=== PATIENT | female | born 1985 | race Caucasian/White ===

== ENCOUNTER 2018-03-23 08:33 | Emergency (ER) | payer MEDICAID ==
[~2018-03-23] VITALS: Ht 152.4 cm; Wt 59.0 kg
[2018-03-23 08:39] VITALS: BP 135/94
[2018-03-23] MEDS ORDERED: TETanus/Pertussis (Acell)/Diphther VAC/PF (Tdap-Adult) 0.5ml syringe IM ONE (08:55)
[2018-03-23] MEDS ORDERED: LIDOcaine 1.5% w/epinephrine 1:200,000 5ml ampul IJ ONE (08:55)
== END 2018-03-23 09:45 | disposition home or self-care (01) ==
LOC: ER 08:34
DX: S01.112A Laceration without foreign body of left eyelid and periocular area, initial encounter (principal); W18.30XA Fall on same level, unspecified, initial encounter; Y93.89 Activity, other specified; Y92.89 Other specified places as the place of occurrence of the external cause; Y99.8 Other external cause status; Z88.2 Allergy status to sulfonamides; Z88.8 Allergy status to other drugs, medicaments and biological substances
CPT/HCPCS: 12013; 90471; 90715; 99284; A6449; J3490

== ENCOUNTER 2018-12-15 09:12 | Emergency (ER) | payer MEDICAID ==
[~2018-12-15] VITALS: Ht 165.1 cm; Wt 53.0 kg
[2018-12-15] MEDS ORDERED: TETanus/Pertussis (Acell)/Diphther VAC/PF (Tdap-Adult) 0.5ml syringe IM ONE (09:30)
[2018-12-15 09:40] VITALS: BP 117/91
== END 2018-12-15 10:13 | disposition home or self-care (01) ==
LOC: ER 09:13
DX: S00.31XA Abrasion of nose, initial encounter (principal); Z88.2 Allergy status to sulfonamides; Z88.8 Allergy status to other drugs, medicaments and biological substances; W01.0XXA Fall on same level from slipping, tripping and stumbling without subsequent striking against object, initial encounter; Y93.89 Activity, other specified; Y92.89 Other specified places as the place of occurrence of the external cause; Y99.8 Other external cause status
CPT/HCPCS: 90471; 90715; 99284

== ENCOUNTER 2021-06-21 09:00 | Inpatient (IN) | payer MEDICAID ==
[~2021-06-21] VITALS: Ht 165.1 cm; Wt 53.0 kg
[2021-06-21] VITALS (8 sets, daily range): BP systolic 102–121; BP diastolic 62–77
[2021-06-21] MEDS ORDERED: phenobarbital inj 130 MG in normal saline 100ml IV soln 99 ML IV ONE (09:20)
[2021-06-21 09:32] LABS: BASOPHILS % (AUTO) 0.3 % (0-1); EOSINOPHILS % (AUTO) 0 % (0-6); HEMATOCRIT 36.5 % (35.0-45.0); HEMOGLOBIN 11.9 g/dl (12.0-16.0); LYMPHOCYTES # (AUTO) 0.5 X10'3 (1.1-4.8); LYMPHOCYTES % (AUTO) 4.5 % (21-51); MEAN CORPUSCULAR HEMOGLOBIN 28.5 PG (27.0-31.0); MEAN CORPUSCULAR HGB CONC 32.7 g/dL (33.0-36.5); MEAN CORPUSCULAR VOLUME 87.4 FL (78-98); MEAN PLATELET VOLUME 8.3 FL (7.4-10.4); MONOCYTES # (AUTO) 0.4 X10'3 (0-0.9); MONOCYTES % (AUTO) 3.9 % (2-12); NEUTROPHILS # (AUTO) 9.5 X10'3 (1.8-7.7); NEUTROPHILS % (AUTO) 91.3 % (42-75); PLATELET COUNT 330 X10'3 (140-440); RED BLOOD COUNT 4.18 X10'6 (4.20-5.60); RED CELL DISTRIBUTION WIDTH 16.8 % (11.5-14.5); WHITE BLOOD COUNT 10.4 X10'3 (4.5-11.0)
[2021-06-21 09:40] LABS: PARTIAL THROMBOPLASTIN TIME 25 SECONDS (22-32)
[2021-06-21 09:41] LABS: ALANINE AMINOTRANSFERASE 18 U/L (12-78); ALBUMIN 4.3 G/DL (3.4-5.0); ALBUMIN/GLOBULIN RATIO 1.1 (1.1-1.5); ALKALINE PHOSPHATASE 61 IU/L (46-116); ANION GAP 14 (8-16); ASPARTATE AMINO TRANSFERASE 19 U/L (10-37); BILIRUBIN,TOTAL 0.4 MG/DL (0.1-1.0); BLOOD UREA NITROGEN 9 MG/DL (7-18); BUN/CREATININE RATIO 8.8 (6.6-38.0); CHLORIDE 109 MMOL/L (99-107); CREATININE 1.02 MG/DL (0.40-0.90); GLUCOSE 69 MG/DL (70-104); POTASSIUM 3.9 MMOL/L (3.5-5.1); SODIUM 145 MMOL/L (135-145); TOTAL CARBON DIOXIDE 22.3 MMOL/L (24-32); TOTAL PROTEIN 8.3 G/DL (6.4-8.2); eGFR 62 ML/MIN
--- NOTE | 2021-06-21 10:34 | NUR ---
ASSUMED CARE OF PT FROM DEMETRI BEASLEY
[2021-06-21] MEDS ORDERED: MIDAZolam 5mg/ml 2ml vial IV ONE (10:40)
[2021-06-21] MEDS ORDERED: morphine 2 MG/ML inj. syringe IV ONE (11:25)
--- NOTE | 2021-06-21 11:30 | NUR ---
UNABLE TO DO COMPLETE NIH ASSESSMENT, PT IS DEVELOPMENTALLY DELAYED, HAS HAD SEVERAL STROKES TODAY AND IS POSTICTAL
--- NOTE | 2021-06-21 11:32 | NUR ---
first contact with pt, pt is agitated, was unable to do CT earlier due to agitation, medicated per order, pt to CT now, caregiver is at bedside, pt not talking, following simple commands, eyes open spontaneously, resp even and unlabored, skin p/w/d, per caregiver pt has had increase in seizures lately,
[2021-06-21] MEDS ORDERED: SENN8.6T19 PO (12:02)
[2021-06-21] MEDS ORDERED: SERT-433 PO (12:02)
[2021-06-21] MEDS ORDERED: GABA-534 PO (12:02)
[2021-06-21] MEDS ORDERED: OMEP-50 PO (12:02)
[2021-06-21] MEDS ORDERED: LORA-269 PO (12:02)
[2021-06-21] MEDS ORDERED: LACO150T2 PO (12:02)
[2021-06-21] MEDS ORDERED: BUSP10TA4 PO (12:02)
[2021-06-21] MEDS ORDERED: LIDOcaine 2% 10ml TOPICAL JELLY (Urojet) TP ONE (12:05)
[2021-06-21] MEDS ORDERED: LEVE500T99 PO ×2 (12:08)
[2021-06-21] MEDS ORDERED: LAMO200T10 PO (12:08)
--- NOTE | 2021-06-21 12:14 | NUR ---
in and out cath done, pt is wearing depends, wet with urine, changed pt, able to get small amount of urine out, sample sent to lab
--- NOTE | 2021-06-21 12:15 | NUR ---
PT IS RESTING QUIETLY, ABLE TO MOVE ALL EXTREMITIES, CAREGIVER REMAINS AT BEDSIDE
[2021-06-21 12:27] LABS: URINE HCG NEGATIVE (NEG)
[2021-06-21 12:29] LABS: CLARITY,URINE CLOUDY (Clear); COLOR,URINE YELLOW (Yellow); GLUCOSE, URINE NEGATIVE (Neg); KETONES,URINE 40 mg/dl (Neg); PROTEIN,URINE TRACE mg/dl (Neg); UA COLLECTION TYPE STRAIGHT CATH
[2021-06-21 12:30] LABS: LEUKOCYTE ESTERASE ,URINE NEGATIVE (Neg); NITRITES, URINE NEGATIVE (Neg); OCCULT BLOOD,URINE NEGATIVE (Neg); UROBILINOGEN,URINE 0.2 E.U/dL (0.2-1.0)
[2021-06-21 12:38] LABS: URINE AMPHETAMINE SCREEN NEGATIVE (Neg); URINE BARBITUATE SCREEN NEGATIVE (Neg); URINE BENZODIAZEPINES SCREEN POSITIVE (Neg); URINE CANNABINOID SCREEN NEGATIVE (Neg); URINE COCAINE SCREEN NEGATIVE (Neg); URINE METHADONE SCREEN NEGATIVE (Neg); URINE OPIATE SCREEN POSITIVE (Neg); URINE PHENCYCLIDINE SCREEN NEGATIVE (Neg)
[2021-06-21] MEDS ORDERED: acetaminophen 325mg tablet PO PRN ×2 (12:50)
[2021-06-21] MEDS ORDERED: morphine 4 MG/ML inj SYRINge IV PRN (12:50)
[2021-06-21] MEDS ORDERED: magnesium hydroxide 30ml (MOM) UD suspension PO PRN (12:50)
[2021-06-21] MEDS ORDERED: potassium Cl 20 mEq SR tablet PO PRN (12:50)
[2021-06-21] MEDS ORDERED: HYDROcodone/acetaminophen 5mg/325mg tablet PO PRN (12:50)
[2021-06-21] MEDS: bisacodyl 10mg suppository rectal RC SCH (12:50)
[2021-06-21 12:51] LABS: AMORPHOUS URATES 3+; SQUAMOUS EPITHELIAL CELL,UR MANY /LPF (FEW)
[2021-06-21 12:52] LABS: BACTERIA,URINE FEW /HPF (Neg); RBC,URINE NONE SEEN /HPF (0-2); WBC,URINE 0-4 /HPF (0-4)
[2021-06-21] MEDS ORDERED: ringers solution, lacted 1,000 ML IV ONE (12:55)
[2021-06-21] MEDS ORDERED: levetiracetam inj 1,000 MG in normal saline 100ml IV soln 90 ML IV ONE (13:15)
--- NOTE | 2021-06-21 14:34 | NUR ---
pt is resting quietly on gursteve, caregiver at bedside, she said pt had another seizure, pt is moving all extremities now, resp even and unlabored, almost back to baseline per caregiver, pt does talk, amb with gait belt, able to do some ADLs normally
--- NOTE | 2021-06-21 15:17 | NUR ---
REPORT TO DEBRA BEASLEY
--- NOTE | 2021-06-21 16:15 | NUR ---
Received pt from ED
--- NOTE | 2021-06-21 18:00 | NUR ---
Patient in room ICU 2040. I have received report from Eliseo BEASLEY and had the opportunity to ask questions and assume patient care.
--- NOTE | 2021-06-21 18:58 | NUR ---
patient has seizure length 20 seconds est. patient began screaming and then raised both hands to the cieling and began to shake and eyes were rolling. seizure ended at 1858, seizure precautions in place, patient safe
[2021-06-21] MEDS ORDERED: LORazepam 2 mg/ml vial IV PRN (19:20)
[2021-06-21] MEDS: normal saline 1000ml 1,000 ML IV SCH ×2 (19:25→22:50)
[2021-06-21] MEDS ORDERED: levetiracetam inj 1,000 MG in normal saline 100ml IV soln 90 ML IV SCH ×6 (20:00)
[2021-06-21] MEDS ORDERED: phenobarbital inj 130 MG in normal saline 100ml IV soln 99 ML IV SCH (20:00)
[2021-06-21] MEDS: enoxaparin 40mg/0.4ml syringe SQ SCH (20:27)
--- NOTE | 2021-06-21 20:30 | NUR ---
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 no answer.
[2021-06-21] MEDS ORDERED: levetiracetam inj 2,000 MG in normal saline 100ml IV soln 80 ML IV STA (21:25)
[2021-06-21] MEDS ORDERED: lamoTRIgine 100mg tablet PO SCH (21:30)
[2021-06-21] MEDS ORDERED: gabapentin 400mg capsule PO SCH (21:45)
[2021-06-22] VITALS (23 sets, daily range): BP systolic 88–114; BP diastolic 56–93
[2021-06-22] MEDS ORDERED: LORazepam 2 mg/ml vial IV PRN (04:30)
[2021-06-22] MEDS ORDERED: LORazepam 2 mg/ml vial IV ONE (04:36)
[2021-06-22 06:48] LABS: BASOPHILS % (AUTO) 0.4 % (0-1); EOSINOPHILS % (AUTO) 0.1 % (0-6); HEMATOCRIT 33.5 % (35.0-45.0); HEMOGLOBIN 10.8 g/dl (12.0-16.0); LYMPHOCYTES # (AUTO) 1.7 X10'3 (1.1-4.8); LYMPHOCYTES % (AUTO) 28.6 % (21-51); MEAN CORPUSCULAR HEMOGLOBIN 28.5 PG (27.0-31.0); MEAN CORPUSCULAR HGB CONC 32.2 g/dL (33.0-36.5); MEAN CORPUSCULAR VOLUME 88.7 FL (78-98); MEAN PLATELET VOLUME 8.9 FL (7.4-10.4); MONOCYTES # (AUTO) 0.5 X10'3 (0-0.9); NEUTROPHILS # (AUTO) 3.7 X10'3 (1.8-7.7); NEUTROPHILS % (AUTO) 62.9 % (42-75); PLATELET COUNT 247 X10'3 (140-440); RED BLOOD COUNT 3.78 X10'6 (4.20-5.60); RED CELL DISTRIBUTION WIDTH 16.9 % (11.5-14.5)
[2021-06-22 07:25] LABS: ALANINE AMINOTRANSFERASE 15 U/L (12-78); ALBUMIN 3.6 G/DL (3.4-5.0); ALKALINE PHOSPHATASE 51 IU/L (46-116); ANION GAP 14 (8-16); ASPARTATE AMINO TRANSFERASE 18 U/L (10-37); BILIRUBIN,TOTAL 0.4 MG/DL (0.1-1.0); BLOOD UREA NITROGEN 11 MG/DL (7-18); BUN/CREATININE RATIO 17.5 (6.6-38.0); CALCIUM 8.5 MG/DL (8.5-10.1); CHLORIDE 115 MMOL/L (99-107); CREATININE 0.63 MG/DL (0.40-0.90); GLUCOSE 71 MG/DL (70-104); MAGNESIUM 2.3 MG/DL (1.5-2.4); PHOSPHORUS 3.7 MG/DL (2.3-4.5); POTASSIUM 3.8 MMOL/L (3.5-5.1); SODIUM 148 MMOL/L (135-145); TOTAL PROTEIN 7.1 G/DL (6.4-8.2); eGFR > 90 ML/MIN
[2021-06-22] MEDS ORDERED: levetiracetam inj 1,500 MG in normal saline 100ml IV soln 85 ML IV SCH (08:00)
[2021-06-22] MEDS ORDERED: dextrose 50%-water 50ml dispensing syringe IV ONE (09:11)
[2021-06-22] MEDS: pantoprazole 40 MG vial IV SCH (10:41)
[2021-06-22] MEDS: normal saline 1000ml 1,000 ML IV SCH (10:41)
[2021-06-22] MEDS ORDERED: normal saline 250ml IV soln 250 ML IV ONE (11:20)
[2021-06-22] MEDS: dextrose 5%-water 1,000 ML IV SCH (11:52)
[2021-06-22] MEDS ORDERED: dextrose ORAL solution 15 GM/59 ML bottle PO PRN (14:40)
[2021-06-22] MEDS ORDERED: glucagon, human recombinant 1mg kit SUBCUT PRN (14:40)
[2021-06-22] MEDS ORDERED: dextrose 50%-water 50ml dispensing syringe IV PRN ×2 (14:40)
[2021-06-22] MEDS: busPIRone 5mg tablet PO SCH ×2 (15:01→20:51)
[2021-06-22] MEDS: lamoTRIgine 100mg tablet PO SCH ×2 (15:01→20:51)
[2021-06-22] MEDS: LACOSAMIDE 50 MG TABLET PO SCH ×2 (15:41→20:45)
[2021-06-22] MEDS: enoxaparin 40mg/0.4ml syringe SQ SCH (20:45)
[2021-06-22] MEDS: gabapentin 400mg capsule PO SCH (20:45)
[2021-06-22] MEDS: sennosides 8.6mg tablet PO SCH (20:50)
[2021-06-22] MEDS: levetiracetamNACL 1500mg/100mL 100 ML IV SCH (20:50)
[2021-06-23] VITALS (17 sets, daily range): BP systolic 91–114; BP diastolic 56–80
--- NOTE | 2021-06-23 01:28 | NUR ---
PATIENT REMOVES NG TUBE, MD HARTMANN NOTIFIED, RELAYED THAT PATIENT BLOOD SUGAR WAS LOW AND GIVEN APPLE SAUCE AND APPLE JUICE AND TOLERATES WELL. SUGAR WENT FROM 65 TO 81, PT STABLE AND ABSENT OF SEIZURES SO FAR THIS SHIFT. STATES THAT WE WULL CONT. TO MONITOR AND HOLD OFF ON NG TUBEUNTIL FURTHER NOTICE. PATENT HAS DEXTROSE AT 20ML/HR.
--- NOTE | 2021-06-23 05:35 | NUR ---
no out output or bm, for patient entire shift. pt is npo recieving d5 at 20 and is npo but was given apple juice and apple sauce for low blood sugar. was also given stool softener. patient was absent of seiure episode entire shift and was not given any ativan. patient was lethargic entire shift.
[2021-06-23] MEDS: LACOSAMIDE 50 MG TABLET PO SCH ×2 (08:14→20:00)
[2021-06-23] MEDS: levetiracetamNACL 1500mg/100mL 100 ML IV SCH ×2 (08:14→20:33)
[2021-06-23] MEDS: busPIRone 5mg tablet PO SCH ×3 (08:15→23:31)
[2021-06-23] MEDS: sertraline 50mg tablet PO SCH (08:15)
[2021-06-23] MEDS: lamoTRIgine 100mg tablet PO SCH ×3 (08:15→23:32)
[2021-06-23] MEDS: gabapentin 400mg capsule PO SCH ×2 (08:15→20:02)
[2021-06-23] MEDS: sennosides 8.6mg tablet PO SCH ×2 (08:16→20:01)
[2021-06-23] MEDS: pantoprazole 40 MG vial IV SCH (08:16)
[2021-06-23 12:05] LABS: BASOPHILS % (AUTO) 0.3 % (0-1); EOSINOPHILS % (AUTO) 0.3 % (0-6); HEMATOCRIT 31.7 % (35.0-45.0); HEMOGLOBIN 10.4 g/dl (12.0-16.0); LYMPHOCYTES % (AUTO) 22.7 % (21-51); MEAN CORPUSCULAR HEMOGLOBIN 28.5 PG (27.0-31.0); MEAN CORPUSCULAR HGB CONC 32.7 g/dL (33.0-36.5); MEAN CORPUSCULAR VOLUME 87.1 FL (78-98); MONOCYTES # (AUTO) 0.3 X10'3 (0-0.9); MONOCYTES % (AUTO) 7.5 % (2-12); NEUTROPHILS # (AUTO) 3.1 X10'3 (1.8-7.7); NEUTROPHILS % (AUTO) 69.2 % (42-75); PLATELET COUNT 227 X10'3 (140-440); RED BLOOD COUNT 3.64 X10'6 (4.20-5.60); RED CELL DISTRIBUTION WIDTH 16.6 % (11.5-14.5); WHITE BLOOD COUNT 4.5 X10'3 (4.5-11.0)
[2021-06-23 12:20] LABS: ALANINE AMINOTRANSFERASE 18 U/L (12-78); ALBUMIN 3.2 G/DL (3.4-5.0); ALBUMIN/GLOBULIN RATIO 0.9 (1.1-1.5); ALKALINE PHOSPHATASE 54 IU/L (46-116); ANION GAP 14 (8-16); ASPARTATE AMINO TRANSFERASE 18 U/L (10-37); BILIRUBIN,TOTAL 0.4 MG/DL (0.1-1.0); BLOOD UREA NITROGEN 4 MG/DL (7-18); CALCIUM 7.8 MG/DL (8.5-10.1); CHLORIDE 106 MMOL/L (99-107); CREATININE 0.67 MG/DL (0.40-0.90); GLUCOSE 79 MG/DL (70-104); MAGNESIUM 1.8 MG/DL (1.5-2.4); PHOSPHORUS 4.2 MG/DL (2.3-4.5); POTASSIUM 3.3 MMOL/L (3.5-5.1); SODIUM 142 MMOL/L (135-145); TOTAL CARBON DIOXIDE 22.4 MMOL/L (24-32); TOTAL PROTEIN 6.8 G/DL (6.4-8.2); eGFR > 90 ML/MIN
--- NOTE | 2021-06-23 16:51 | NUR ---
Patient currently resting on bed comfortably, patient urinated large amount of urine on her gown and diaper. Pericare done and changed gowns and underpad. Sitter present at bedside. Upper side rails are padded.
--- NOTE | 2021-06-23 18:46 | NUR ---
Problems reprioritized. Patient report given, questions answered & plan of care reviewed with Nic BEASLEY.
[2021-06-23] MEDS: enoxaparin 40mg/0.4ml syringe SQ SCH (20:03)
[2021-06-24 02:00] VITALS: BP 103/63
[2021-06-24 06:00] VITALS: BP 105/68
[2021-06-24 06:49] LABS: BASOPHILS % (AUTO) 0.4 % (0-1); EOSINOPHILS % (AUTO) 1.2 % (0-6); HEMATOCRIT 30.5 % (35.0-45.0); HEMOGLOBIN 10.2 g/dl (12.0-16.0); LYMPHOCYTES % (AUTO) 28.7 % (21-51); MEAN CORPUSCULAR HEMOGLOBIN 28.9 PG (27.0-31.0); MEAN CORPUSCULAR HGB CONC 33.3 g/dL (33.0-36.5); MEAN CORPUSCULAR VOLUME 86.7 FL (78-98); MEAN PLATELET VOLUME 8.2 FL (7.4-10.4); MONOCYTES # (AUTO) 0.3 X10'3 (0-0.9); MONOCYTES % (AUTO) 8.2 % (2-12); NEUTROPHILS # (AUTO) 2.2 X10'3 (1.8-7.7); NEUTROPHILS % (AUTO) 61.5 % (42-75); PLATELET COUNT 240 X10'3 (140-440); RED BLOOD COUNT 3.51 X10'6 (4.20-5.60); RED CELL DISTRIBUTION WIDTH 16.6 % (11.5-14.5); WHITE BLOOD COUNT 3.6 X10'3 (4.5-11.0)
[2021-06-24 07:09] LABS: ALANINE AMINOTRANSFERASE 17 U/L (12-78); ALBUMIN 3.2 G/DL (3.4-5.0); ALBUMIN/GLOBULIN RATIO 0.9 (1.1-1.5); ALKALINE PHOSPHATASE 49 IU/L (46-116); ANION GAP 10 (8-16); ASPARTATE AMINO TRANSFERASE 17 U/L (10-37); BILIRUBIN,TOTAL 0.4 MG/DL (0.1-1.0); BLOOD UREA NITROGEN 7 MG/DL (7-18); BUN/CREATININE RATIO 10.1 (6.6-38.0); CALCIUM 8.3 MG/DL (8.5-10.1); CHLORIDE 108 MMOL/L (99-107); CREATININE 0.69 MG/DL (0.40-0.90); GLUCOSE 85 MG/DL (70-104); MAGNESIUM 1.8 MG/DL (1.5-2.4); PHOSPHORUS 3.8 MG/DL (2.3-4.5); POTASSIUM 3.2 MMOL/L (3.5-5.1); SODIUM 143 MMOL/L (135-145); TOTAL CARBON DIOXIDE 24.9 MMOL/L (24-32); TOTAL PROTEIN 6.7 G/DL (6.4-8.2); eGFR > 90 ML/MIN
[2021-06-24] MEDS: lamoTRIgine 100mg tablet PO SCH ×3 (08:00→20:50)
[2021-06-24] MEDS: LACOSAMIDE 50 MG TABLET PO SCH ×2 (08:22→20:47)
[2021-06-24] MEDS: sennosides 8.6mg tablet PO SCH ×2 (08:22→20:47)
[2021-06-24] MEDS: sertraline 50mg tablet PO SCH (08:22)
[2021-06-24] MEDS: pantoprazole 40 MG vial IV SCH (08:22)
[2021-06-24] MEDS: busPIRone 5mg tablet PO SCH ×3 (08:22→20:49)
[2021-06-24] MEDS: levetiracetamNACL 1500mg/100mL 100 ML IV SCH ×2 (08:22→20:59)
[2021-06-24] MEDS: gabapentin 400mg capsule PO SCH ×2 (08:22→20:47)
[2021-06-24 11:00] VITALS: BP 94/60
[2021-06-24] MEDS: dextrose 5%-water 1,000 ML IV SCH (11:20)
[2021-06-24] MEDS: potassium Cl 20 mEq SR tablet PO PRN ×2 (12:32→16:41)
[2021-06-24] MEDS: bisacodyl 10mg suppository rectal RC SCH (12:33)
[2021-06-24 15:00] VITALS: BP 103/70
[2021-06-24 18:00] VITALS: BP 105/72
--- NOTE | 2021-06-24 18:15 | NUR ---
I have received report from RAMOS Thakkar and had the opportunity to ask questions and assume patient care. Addendum: 06/25/21 at 0635 by Darrin Cope RN Received report RAMOS Hernandez
--- NOTE | 2021-06-24 18:30 | NUR ---
RE: U 15A Barb. Pt has D5W q48hrs ordered. Do you want us to continue this order? She is eating, drinking, and bs check are WNL. Please advise.
--- NOTE | 2021-06-24 18:31 | NUR ---
PAGER ID: [phone] MESSAGE: RE: KITTY Zuleika Barb. Pt has D5W q48hrs ordered. Do you want us to continue this order? She is eating, drinking, and bs check are WNL. Please advise.
--- NOTE | 2021-06-24 18:35 | NUR ---
Patient in room U 3015. I have received report from RAMOS Ramirez and had the opportunity to ask questions and assume patient care. Addendum: 06/25/21 at 0257 by Darrin Cope RN received report on this pt from RAMOS Thakkar see earlier note
--- NOTE | 2021-06-24 18:50 | NUR ---
Report given to shift manager nurse.
--- NOTE | 2021-06-24 18:55 | NUR ---
Called Dr Ventura @[phone]. States it is ok to d/c the Q48 D5W.
[2021-06-24] MEDS: enoxaparin 40mg/0.4ml syringe SQ SCH (20:49)
[2021-06-24 21:46] VITALS: BP 103/71
[2021-06-24] MEDS: ondansetron/PF 4mg/2ml inj IV PRN (21:47)
[2021-06-25] MEDS: ondansetron/PF 4mg/2ml inj IV PRN (03:49)
[2021-06-25 06:00] VITALS: BP 174/67
--- NOTE | 2021-06-25 06:36 | NUR ---
Problems reprioritized. Patient report given, questions answered & plan of care reviewed with RAMOS Hernandez.
[2021-06-25 07:21] LABS: BASOPHILS % (AUTO) 0.3 % (0-1); EOSINOPHILS # (AUTO) 0.1 X10'3 (0-0.9); EOSINOPHILS % (AUTO) 2.2 % (0-6); HEMATOCRIT 31.6 % (35.0-45.0); HEMOGLOBIN 10.6 g/dl (12.0-16.0); LYMPHOCYTES % (AUTO) 27.8 % (21-51); MEAN CORPUSCULAR HEMOGLOBIN 29.1 PG (27.0-31.0); MEAN CORPUSCULAR HGB CONC 33.5 g/dL (33.0-36.5); MEAN CORPUSCULAR VOLUME 86.9 FL (78-98); MEAN PLATELET VOLUME 8.6 FL (7.4-10.4); MONOCYTES # (AUTO) 0.3 X10'3 (0-0.9); MONOCYTES % (AUTO) 7.8 % (2-12); NEUTROPHILS # (AUTO) 2.2 X10'3 (1.8-7.7); NEUTROPHILS % (AUTO) 61.9 % (42-75); PLATELET COUNT 253 X10'3 (140-440); RED BLOOD COUNT 3.64 X10'6 (4.20-5.60); RED CELL DISTRIBUTION WIDTH 17.2 % (11.5-14.5); WHITE BLOOD COUNT 3.6 X10'3 (4.5-11.0)
[2021-06-25 07:41] LABS: ALANINE AMINOTRANSFERASE 17 U/L (12-78); ALBUMIN 3.4 G/DL (3.4-5.0); ALBUMIN/GLOBULIN RATIO 0.9 (1.1-1.5); ALKALINE PHOSPHATASE 50 IU/L (46-116); ANION GAP 8 (8-16); ASPARTATE AMINO TRANSFERASE 13 U/L (10-37); BILIRUBIN,TOTAL 0.3 MG/DL (0.1-1.0); BLOOD UREA NITROGEN 5 MG/DL (7-18); BUN/CREATININE RATIO 7.5 (6.6-38.0); CALCIUM 8.8 MG/DL (8.5-10.1); CHLORIDE 108 MMOL/L (99-107); CREATININE 0.67 MG/DL (0.40-0.90); GLUCOSE 77 MG/DL (70-104); MAGNESIUM 2.1 MG/DL (1.5-2.4); PHOSPHORUS 3.3 MG/DL (2.3-4.5); POTASSIUM 3.9 MMOL/L (3.5-5.1); SODIUM 143 MMOL/L (135-145); TOTAL CARBON DIOXIDE 27.1 MMOL/L (24-32); eGFR > 90 ML/MIN
[2021-06-25] MEDS: busPIRone 5mg tablet PO SCH ×3 (08:21→20:01)
[2021-06-25] MEDS: sertraline 50mg tablet PO SCH (08:21)
[2021-06-25] MEDS: lamoTRIgine 100mg tablet PO SCH ×3 (08:21→20:01)
[2021-06-25] MEDS: levetiracetamNACL 1500mg/100mL 100 ML IV SCH ×2 (08:21→20:10)
[2021-06-25] MEDS: sennosides 8.6mg tablet PO SCH ×2 (08:21→20:01)
[2021-06-25] MEDS: LACOSAMIDE 50 MG TABLET PO SCH ×2 (08:21→20:01)
[2021-06-25] MEDS: pantoprazole 40mg Tablet.DR PO SCH (08:21)
[2021-06-25] MEDS: gabapentin 400mg capsule PO SCH ×2 (08:21→20:01)
[2021-06-25 11:00] VITALS: BP 134/61
--- NOTE | 2021-06-25 13:14 | NUR ---
Initial: Pt admitted w/ multiple seizures per EMR. Pt has been able to eat well throughout LOS, 100% of all meals on SB6/Regular diet except for dinner 06/24 which she refused. Pt noted w/ areas of redness on back and sacrum though no open wounds documented. LBM 06/24. No nutrition intervention implemented at this time, will continue to monitor. Recs: 1. Continue SB6/Regular diet per ST recs 2. Bowel care per rx 3. Weekly wts Addendum: 06/25/21 at [address] Amended: Links added.
[2021-06-25 15:00] VITALS: BP 91/63
--- NOTE | 2021-06-25 18:00 | NUR ---
I have received report from David BEASLEY and had the opportunity to ask questions and assume patient care.
[2021-06-25 20:00] VITALS: BP 94/68
[2021-06-25] MEDS: enoxaparin 40mg/0.4ml syringe SQ SCH (20:02)
--- NOTE | 2021-06-25 22:30 | NUR ---
Problems reprioritized. Patient report given, questions answered & plan of care reviewed with Flex BEASLEY.
--- NOTE | 2021-06-26 03:12 | NUR ---
Patient in room [facility] 340. I have received report from Shasta BEASLEY and had the opportunity to ask questions and assume patient care.
--- NOTE | 2021-06-26 06:57 | NUR ---
Patient in room [facility] 340. I have received report from RAMOS HEART and had the opportunity to ask questions and assume patient care.
[2021-06-26 07:00] VITALS: BP_SYST 101; BP_SYST 165; BP_DIAS 68; BP_DIAS 87
--- NOTE | 2021-06-26 07:36 | NUR ---
Problems reprioritized. Patient report given, questions answered & plan of care reviewed with Denise BEASLEY.
[2021-06-26] MEDS: sertraline 50mg tablet PO SCH (09:25)
[2021-06-26] MEDS: pantoprazole 40mg Tablet.DR PO SCH (09:25)
[2021-06-26] MEDS: busPIRone 5mg tablet PO SCH ×2 (09:25→13:50)
[2021-06-26] MEDS: lamoTRIgine 100mg tablet PO SCH ×2 (09:26→13:50)
[2021-06-26] MEDS: sennosides 8.6mg tablet PO SCH (09:26)
[2021-06-26] MEDS: gabapentin 400mg capsule PO SCH (09:26)
[2021-06-26] MEDS: levetiracetamNACL 1500mg/100mL 100 ML IV SCH (10:24)
[2021-06-26 11:00] VITALS: BP_SYST 107; BP_SYST 155; BP_DIAS 80; BP_DIAS 86
[2021-06-26] MEDS: LACOSAMIDE 50 MG TABLET PO SCH (11:01)
--- NOTE | 2021-06-26 11:57 | NUR ---
Spoke to Dr Moore from ICU regarding patient has not had any notes from a physician since 06/23. I advised Dr Moore that I have spoken with Belkis in the hospitalist office who does not show that this patient has been signed out to there service. The last note from Dr Sullivan stated that patient no longer needed ICU and would be transferred to Med/ Surg. Patient came to our floor last night from PCU. Dr Moore will contact Hospitalist service Dr Pinzon. No Hospitalist at this time will wait for DR Moore to sign out.
[2021-06-26] MEDS ORDERED: KEP500T PO (13:17)
--- NOTE | 2021-06-26 14:35 | NUR ---
Pt discharged to home with all belongings, in private vehicle. Discharge instructions and medications reviewed with Santi Chacko via T/C. New prescription sent to [facility] on [address] IV DC'd, cannula intact. Per Santi, pt has an appointment with her neurologist scheduled 07/02. Pt escorted to [facility] via wheelchair by [facility].
== END 2021-06-26 14:52 | disposition home or self-care (01) | DRG 53 ==
LOC: ER 09:00 → ICU 2S 12:53 → PCU 3S 06-23 18:46 → SUR 3N 06-25 22:00
PROVIDERS: ADMIT Surgery; ATTEND Surgery
PROC: 4A10X4Z Monitoring of Central Nervous Electrical Activity, External Approach (ICD-10-PCS; principal; 2021-06-21)
PROC: 4A10X4Z Monitoring of Central Nervous Electrical Activity, External Approach (ICD-10-PCS; 2021-06-22)
PROC: 4A10X4Z Monitoring of Central Nervous Electrical Activity, External Approach (ICD-10-PCS; 2021-06-23)
DX: G40.911 Epilepsy, unspecified, intractable, with status epilepticus (principal); G83.84 Todd's paralysis (postepileptic); E86.1 Hypovolemia; Z20.822 Contact with and (suspected) exposure to COVID-19; F32.9 Major depressive disorder, single episode, unspecified; Z88.2 Allergy status to sulfonamides; Z88.8 Allergy status to other drugs, medicaments and biological substances; Z79.899 Other long term (current) drug therapy
CPT/HCPCS: 36415; 70450; 71045; 74018; 76937; 80053; 80305; 81001; 81025; 82948; 83735; 84100; 85025; 85610; 85730; 86885; 86900; 86901; 87081; 87635; 92508; 92616; 93005; 95720; 99291; C9113; C9803; G0378; J1650; J1953; J2060; J2250; J2270; J2405; J2560; J7030; J7050; J7070

== ENCOUNTER 2022-01-02 12:51 | Emergency (ER) | payer MEDICAID ==
[~2022-01-02] VITALS: Ht 170.2 cm; Wt 52.3 kg
[~2022-01-02 12:51] MED LIST: BUSP10TA4 PO; GABA-534 PO; KEP500T PO; LACO150T2 PO; LAMO200T10 PO; SENN8.6T19 PO; SERT-433 PO
[2022-01-02 13:40] VITALS: BP 108/71
[2022-01-02] MEDS ORDERED: TETanus/Pertussis (Acell)/Diphther VAC/PF (Tdap-Adult) 0.5ml syringe IMVAC ONE (14:00)
[2022-01-02] MEDS ORDERED: LIDOcaine 1% W/epiNEPHrine 1:200,000 10ml vial IJ ONE (14:00)
[2022-01-02] MEDS ORDERED: LIDOCAINE 2% w/EPI 1:100:000 30mL injection MDV**cath lab 1 only SQ ONE (14:20)
== END 2022-01-02 15:10 | disposition home or self-care (01) ==
LOC: ER 12:52
DX: S01.01XA Laceration without foreign body of scalp, initial encounter (principal); Z88.2 Allergy status to sulfonamides; Z79.899 Other long term (current) drug therapy; W19.XXXA Unspecified fall, initial encounter; Y93.89 Activity, other specified; Y92.89 Other specified places as the place of occurrence of the external cause; Y99.8 Other external cause status
CPT/HCPCS: 12002; 90471; 90715; 99284

== ENCOUNTER 2022-10-12 09:22 | Outpatient (CLI) | payer MEDICAID ==
[2022-10-12 10:46] LABS: BASOPHILS % (AUTO) 0.3 % (0-1); EOSINOPHILS % (AUTO) 0 % (0-6); HEMATOCRIT 35.7 % (35.0-45.0); HEMOGLOBIN 11.6 g/dl (12.0-16.0); LYMPHOCYTES # (AUTO) 1.2 X10'3 (1.1-4.8); LYMPHOCYTES % (AUTO) 22.5 % (21-51); MEAN CORPUSCULAR HEMOGLOBIN 26.8 PG (27.0-31.0); MEAN CORPUSCULAR HGB CONC 32.6 g/dL (33.0-36.5); MEAN CORPUSCULAR VOLUME 82.4 FL (78-98); MEAN PLATELET VOLUME 8.6 FL (7.4-10.4); MONOCYTES # (AUTO) 0.3 X10'3 (0-0.9); MONOCYTES % (AUTO) 6.1 % (2-12); NEUTROPHILS # (AUTO) 3.8 X10'3 (1.8-7.7); NEUTROPHILS % (AUTO) 71.1 % (42-75); PLATELET COUNT 296 X10'3 (140-440); RED BLOOD COUNT 4.34 X10'6 (4.20-5.60); RED CELL DISTRIBUTION WIDTH 16.3 % (11.5-14.5); WHITE BLOOD COUNT 5.4 X10'3 (4.5-11.0)
[2022-10-12 11:05] LABS: ALANINE AMINOTRANSFERASE 20 U/L (12-78); ALBUMIN 4.1 G/DL (3.4-5.0); ALBUMIN/GLOBULIN RATIO 1.1 (1.1-1.5); ALKALINE PHOSPHATASE 71 IU/L (46-116); ANION GAP 12 (8-16); ASPARTATE AMINO TRANSFERASE 14 U/L (10-37); BILIRUBIN,TOTAL 0.3 MG/DL (0.1-1.0); BLOOD UREA NITROGEN 8 MG/DL (7-18); BUN/CREATININE RATIO 11.9 (6.6-38.0); CALCIUM 8.7 MG/DL (8.5-10.1); CHLORIDE 105 MMOL/L (99-107); CHOLESTEROL 123 MG/DL (0-200); CREATININE 0.67 MG/DL (0.40-0.90); GLUCOSE 91 MG/DL (70-104); HDL CHOLESTEROL 61 MG/DL (35-60); LDL CHOLESTEROL 56 MG/DL (50-100); POTASSIUM 3.8 MMOL/L (3.5-5.1); SODIUM 140 MMOL/L (135-145); TOTAL CARBON DIOXIDE 23.2 MMOL/L (24-32); TRIGLYCERIDES 45 MG/DL (20-135); eGFR > 90 ML/MIN
[2022-10-12 11:26] LABS: HEMOGLOBIN A1C 5.1 % (4.5-6.2)
== END 2022-10-12 23:59 | disposition home or self-care (01) ==
LOC: LAB 09:22
PROVIDERS: ATTEND Family Medicine
DX: Z79.899 Other long term (current) drug therapy (principal); F06.8 Other specified mental disorders due to known physiological condition
CPT/HCPCS: 36415; 80053; 80061; 82306; 82607; 82746; 83036; 84439; 84443; 85025; 86480

== ENCOUNTER 2023-02-04 18:41 | Emergency (ER) | payer MEDICAID ==
[~2023-02-04] VITALS: Ht 170.2 cm; Wt 48.2 kg
[2023-02-04] MEDS ORDERED: LORazepam 2 mg/ml vial IM ONE (23:20)
[2023-02-05 00:16] LABS: BASOPHILS % (AUTO) 0.4 % (0-1); EOSINOPHILS % (AUTO) 0.3 % (0-6); HEMATOCRIT 40.1 % (35.0-45.0); HEMOGLOBIN 12.6 g/dl (12.0-16.0); LYMPHOCYTES # (AUTO) 5.3 X10'3 (1.1-4.8); LYMPHOCYTES % (AUTO) 46.3 % (21-51); MEAN CORPUSCULAR HEMOGLOBIN 27.6 PG (27.0-31.0); MEAN CORPUSCULAR HGB CONC 31.3 g/dL (33.0-36.5); MEAN CORPUSCULAR VOLUME 88.2 FL (78-98); MEAN PLATELET VOLUME 8.4 FL (7.4-10.4); MONOCYTES # (AUTO) 1.1 X10'3 (0-0.9); MONOCYTES % (AUTO) 9.4 % (2-12); NEUTROPHILS % (AUTO) 43.6 % (42-75); PLATELET COUNT 435 X10'3 (140-440); RED BLOOD COUNT 4.55 X10'6 (4.20-5.60); WHITE BLOOD COUNT 11.4 X10'3 (4.5-11.0)
[2023-02-05 00:17] LABS: CLARITY,URINE CLEAR (Clear); COLOR,URINE YELLOW (Yellow); GLUCOSE, URINE NEGATIVE (Neg); KETONES,URINE NEGATIVE (Neg); LEUKOCYTE ESTERASE ,URINE NEGATIVE (Neg); NITRITES, URINE NEGATIVE (Neg); OCCULT BLOOD,URINE NEGATIVE (Neg); PROTEIN,URINE NEGATIVE (Neg); UROBILINOGEN,URINE 0.2 E.U/dL (0.2-1.0)
[2023-02-05 00:23] LABS: UA COLLECTION TYPE STRAIGHT CATH
[2023-02-05 00:30] LABS: ALANINE AMINOTRANSFERASE 29 U/L (12-78); ALBUMIN 4.3 G/DL (3.4-5.0); ALKALINE PHOSPHATASE 81 IU/L (46-116); ANION GAP 28 (8-16); ASPARTATE AMINO TRANSFERASE 21 U/L (10-37); BILIRUBIN,TOTAL 0.2 MG/DL (0.1-1.0); BLOOD UREA NITROGEN 12 MG/DL (7-18); CALCIUM 9.7 MG/DL (8.5-10.1); CHLORIDE 107 MMOL/L (99-107); GLUCOSE 123 MG/DL (70-104); POTASSIUM 3.6 MMOL/L (3.5-5.1); SODIUM 148 MMOL/L (135-145); TOTAL PROTEIN 8.6 G/DL (6.4-8.2); eGFR 51 ML/MIN
[2023-02-05 00:36] LABS: TOTAL CARBON DIOXIDE 12.9 MMOL/L (24-32)
[2023-02-05 01:43] VITALS: BP 92/63
[2023-02-05 02:30] LABS: ALBUMIN 3.9 G/DL (3.4-5.0); ANION GAP 7 (8-16); BLOOD UREA NITROGEN 12 MG/DL (7-18); BUN/CREATININE RATIO 13.5 (10.0-20.0); CALCIUM 8.8 MG/DL (8.5-10.1); CHLORIDE 106 MMOL/L (99-107); CREATININE 0.89 MG/DL (0.40-0.90); GLUCOSE 108 MG/DL (70-104); POTASSIUM 3.9 MMOL/L (3.5-5.1); SODIUM 140 MMOL/L (135-145); TOTAL CARBON DIOXIDE 27.2 MMOL/L (24-32); eGFR 71 ML/MIN
== END 2023-02-05 04:21 | disposition home or self-care (01) ==
LOC: ER 18:41
DX: G40.909 Epilepsy, unspecified, not intractable, without status epilepticus (principal); Z88.2 Allergy status to sulfonamides; Z88.8 Allergy status to other drugs, medicaments and biological substances; Z79.899 Other long term (current) drug therapy
CPT/HCPCS: 36415; 80048; 80053; 81003; 85025; 96372; 99283; J2060

== ENCOUNTER 2023-03-08 10:30 | Emergency (ER) | payer MEDICAID ==
[~2023-03-08] VITALS: Ht 165.1 cm; Wt 48.2 kg
[2023-03-08 10:33] VITALS: BP 116/86
[2023-03-08] MEDS ORDERED: levetiracetam inj 1,000 MG in normal saline 100ml IV soln 90 ML IV STA (10:46)
[2023-03-08] MEDS ORDERED: normal saline 1000ML IV soln IV ONE (10:50)
[2023-03-08] MEDS ORDERED: magnesium 2GM in 50ml NS 50 ML IV ONE (10:50)
[2023-03-08] MEDS ORDERED: LORazepam 2 mg/ml vial IV ONE (10:50)
[2023-03-08] MEDS ORDERED: levetiracetam inj 1,000 MG in normal saline 100ml IV soln 100 ML IV STA (11:01)
[2023-03-08 11:08] LABS: BASOPHILS % (AUTO) 0.1 % (0-1); EOSINOPHILS % (AUTO) 0.1 % (0-6); HEMOGLOBIN 12.8 g/dl (12.0-16.0); LYMPHOCYTES # (AUTO) 0.4 X10'3 (1.1-4.8); LYMPHOCYTES % (AUTO) 7.7 % (21-51); MEAN CORPUSCULAR HEMOGLOBIN 27.8 PG (27.0-31.0); MEAN PLATELET VOLUME 8.3 FL (7.4-10.4); MONOCYTES # (AUTO) 0.4 X10'3 (0-0.9); MONOCYTES % (AUTO) 6.9 % (2-12); NEUTROPHILS # (AUTO) 4.6 X10'3 (1.8-7.7); NEUTROPHILS % (AUTO) 85.2 % (42-75); PLATELET COUNT 306 X10'3 (140-440); RED CELL DISTRIBUTION WIDTH 16.3 % (11.5-14.5); WHITE BLOOD COUNT 5.4 X10'3 (4.5-11.0)
[2023-03-08 11:23] LABS: ALBUMIN 4.2 G/DL (3.4-5.0); ALKALINE PHOSPHATASE 88 IU/L (46-116); ANION GAP 14 (8-16); ASPARTATE AMINO TRANSFERASE 22 U/L (10-37); BILIRUBIN,TOTAL 0.2 MG/DL (0.1-1.0); BLOOD UREA NITROGEN 11 MG/DL (7-18); BUN/CREATININE RATIO 10.4 (10.0-20.0); CALCIUM 9.1 MG/DL (8.5-10.1); CHLORIDE 104 MMOL/L (99-107); CREATINE KINASE 97 U/L (26-192); CREATININE 1.06 MG/DL (0.40-0.90); GLUCOSE 137 MG/DL (70-104); POTASSIUM 3.8 MMOL/L (3.5-5.1); SODIUM 140 MMOL/L (135-145); TOTAL CARBON DIOXIDE 22.5 MMOL/L (24-32); TOTAL PROTEIN 8.3 G/DL (6.4-8.2); eGFR 58 ML/MIN
--- NOTE | 2023-03-08 11:23 | NUR ---
Pt vomited on herself. Pt was being cleaned up by caregiver, caregiver asked Pt to move up in the bed. Rail was lowered for caregiver to help pt change madie clother while she was sitting on the side of the bed. While pt was moving up in bed Pt fell of the side of the bed landing on her R side hitting her head on the floor.
[2023-03-08 12:11] LABS: ALANINE AMINOTRANSFERASE 10 U/L (12-78)
== END 2023-03-08 12:55 | disposition home or self-care (01) ==
LOC: ER 10:31
DX: G40.909 Epilepsy, unspecified, not intractable, without status epilepticus (principal); Z88.2 Allergy status to sulfonamides
CPT/HCPCS: 36415; 80053; 82550; 85025; 93005; 96365; 96368; 96375; 99284; J1953; J2060; J3475; J3490; J7030

== ENCOUNTER 2023-08-08 18:51 | Emergency (ER) | payer MEDICAID ==
[~2023-08-08] VITALS: Ht 170.2 cm; Wt 46.8 kg
[~2023-08-08 18:51] MED LIST changes: -GABA-534 PO; +GABA-535 PO
[2023-08-08] MEDS ORDERED: levetiracetam 100mg/ml oral solution 5ml UD cup PO STA (19:05)
[2023-08-09 03:58] VITALS: TEMP 98
[2023-08-09 04:01] LABS: BILIRUBIN,URINE NEGATIVE (Neg); CLARITY,URINE SLIGHTLY CLOUDY (Clear); COLOR,URINE YELLOW (Yellow); GLUCOSE, URINE NEGATIVE (Neg); KETONES,URINE NEGATIVE (Neg); LEUKOCYTE ESTERASE ,URINE NEGATIVE (Neg); NITRITES, URINE NEGATIVE (Neg); OCCULT BLOOD,URINE LARGE (Neg); PH,URINE 5.5 (4.8-8.0); PROTEIN,URINE NEGATIVE (Neg); UROBILINOGEN,URINE 0.2 E.U/dL (0.2-1.0)
[2023-08-09 04:02] LABS: URINE HCG NEGATIVE (NEG)
[2023-08-09 04:09] LABS: ALANINE AMINOTRANSFERASE 32 U/L (12-78); ALBUMIN 4.1 G/DL (3.4-5.0); ALBUMIN/GLOBULIN RATIO 1.1 (1.1-1.5); ALKALINE PHOSPHATASE 77 IU/L (46-116); ANION GAP 12 (8-16); ASPARTATE AMINO TRANSFERASE 29 U/L (10-37); BILIRUBIN,TOTAL 0.3 MG/DL (0.1-1.0); BLOOD UREA NITROGEN 10 MG/DL (7-18); BUN/CREATININE RATIO 12.5 (10.0-20.0); CALCIUM 9.1 MG/DL (8.5-10.1); CHLORIDE 105 MMOL/L (99-107); GLUCOSE 90 MG/DL (70-104); POTASSIUM 3.5 MMOL/L (3.5-5.1); SODIUM 140 MMOL/L (135-145); TOTAL CARBON DIOXIDE 22.9 MMOL/L (24-32); TOTAL PROTEIN 7.9 G/DL (6.4-8.2); eCRCL 71 ML/MIN; eGFR 81 ML/MIN
[2023-08-09 04:22] LABS: UA COLLECTION TYPE CLN CATCH MIDSTREAM
[2023-08-09 04:24] LABS: BACTERIA,URINE FEW /HPF (Neg); SQUAMOUS EPITHELIAL CELL,UR FEW /LPF (FEW); WBC,URINE 0-4 /HPF (0-4)
[2023-08-09 04:25] LABS: AMORPHOUS URATES 1+; MUCUS STRANDS FEW /LPF (Neg); URIC ACID CRYSTALS FEW /HPF (NEGATIVE)
[2023-08-09] MEDS ORDERED: LORazepam 2 mg/ml vial IM ONE (05:35)
--- NOTE | 2023-08-09 05:41 | NUR ---
PTS CAREGIVER NOTIFIED THIS RN THAT PT WAS HAVING ANOTHER SEIZURE. PT HAD APPROX 15 SECOND TONIC CLONIC SEIZURE, DR CAMPOS IMMEDIATELY NOTIFIED. 2MG IM ATIVAN ORDERED AND ADMINISTERED.
[2023-08-09] MEDS ORDERED: levetiracetam 100mg/ml oral solution 5ml UD cup PO STA (05:46)
[2023-08-09 06:50] VITALS: BP 104/68; PULSE 103; RESP 12; O2SAT 97
== END 2023-08-09 06:51 | disposition home or self-care (01) ==
LOC: ER 18:51
DX: G40.909 Epilepsy, unspecified, not intractable, without status epilepticus (principal); Z88.2 Allergy status to sulfonamides; Z88.8 Allergy status to other drugs, medicaments and biological substances; Z79.899 Other long term (current) drug therapy; Z79.1 Long term (current) use of non-steroidal anti-inflammatories (NSAID); Z79.2 Long term (current) use of antibiotics
CPT/HCPCS: 36415; 70450; 80053; 81001; 81025; 96372; 99285; J1953; J2060; 85025

== ENCOUNTER → 2023-08-27 | Emergency (ER) | payer MEDICAID ==
[~2023-08-27] VITALS: Ht 170.2 cm; Wt 59.1 kg
[~2023-08-27] MED LIST changes: +NAPR-56 PO
[2023-08-27 10:20] VITALS: BP 115/80; PULSE 108; RESP 16; TEMP 98.9; O2SAT 100
--- NOTE | 2023-08-27 14:55 | NUR ---
I have reviewed and agree with all interventions, assessments performed and documented by Glen ESTRADA LVN.
== END | disposition home or self-care (01) ==
LOC: ER 10:14
DX: S00.83XA Contusion of other part of head, initial encounter (principal); Z88.2 Allergy status to sulfonamides; Z88.8 Allergy status to other drugs, medicaments and biological substances; Z79.899 Other long term (current) drug therapy
CPT/HCPCS: 99284

== ENCOUNTER 2023-09-22 13:10 | Emergency (ER) | payer MEDICAID ==
[~2023-09-22] VITALS: Ht 165.1 cm; Wt 51.8 kg
[2023-09-22] MEDS ORDERED: levetiracetam inj 500 MG in normal saline 100ml IV soln 100 ML IV SCH (14:15)
[2023-09-22 14:30] LABS: BASOPHILS % (AUTO) 0.3 % (0-1); EOSINOPHILS % (AUTO) 0.9 % (0-6); HEMATOCRIT 33.5 % (35.0-45.0); HEMOGLOBIN 11.2 g/dl (12.0-16.0); LYMPHOCYTES # (AUTO) 0.9 X10'3 (1.1-4.8); LYMPHOCYTES % (AUTO) 16.9 % (21-51); MEAN CORPUSCULAR HEMOGLOBIN 29.4 PG (27.0-31.0); MEAN CORPUSCULAR HGB CONC 33.4 g/dL (33.0-36.5); MEAN CORPUSCULAR VOLUME 87.9 FL (78-98); MEAN PLATELET VOLUME 8.2 FL (7.4-10.4); MONOCYTES # (AUTO) 0.5 X10'3 (0-0.9); MONOCYTES % (AUTO) 10.2 % (2-12); NEUTROPHILS # (AUTO) 3.7 X10'3 (1.8-7.7); NEUTROPHILS % (AUTO) 71.7 % (42-75); PLATELET COUNT 281 X10'3 (140-440); RED BLOOD COUNT 3.81 X10'6 (4.20-5.60); RED CELL DISTRIBUTION WIDTH 14.9 % (11.5-14.5); WHITE BLOOD COUNT 5.2 X10'3 (4.5-11.0)
[2023-09-22 14:39] LABS: ALANINE AMINOTRANSFERASE 15 U/L (12-78); ALBUMIN 3.5 G/DL (3.4-5.0); ALBUMIN/GLOBULIN RATIO 0.9 (1.1-1.5); ALKALINE PHOSPHATASE 67 IU/L (46-116); ANION GAP 6 (8-16); ASPARTATE AMINO TRANSFERASE 20 U/L (10-37); BILIRUBIN,TOTAL 0.2 MG/DL (0.1-1.0); BLOOD UREA NITROGEN 11 MG/DL (7-18); BUN/CREATININE RATIO 12.8 (10.0-20.0); CALCIUM 8.6 MG/DL (8.5-10.1); CHLORIDE 106 MMOL/L (99-107); CREATININE 0.86 MG/DL (0.40-0.90); GLUCOSE 87 MG/DL (70-104); MAGNESIUM 2.1 MG/DL (1.5-2.4); POTASSIUM 4.2 MMOL/L (3.5-5.1); SODIUM 140 MMOL/L (135-145); TOTAL CARBON DIOXIDE 28.2 MMOL/L (24-32); TOTAL PROTEIN 7.3 G/DL (6.4-8.2); eCRCL 73 ML/MIN; eGFR 74 ML/MIN
[2023-09-22 16:17] LABS: BILIRUBIN,URINE NEGATIVE (Neg); CLARITY,URINE CLOUDY (Clear); COLOR,URINE YELLOW (Yellow); GLUCOSE, URINE NEGATIVE (Neg); KETONES,URINE NEGATIVE (Neg); LEUKOCYTE ESTERASE ,URINE NEGATIVE (Neg); NITRITES, URINE NEGATIVE (Neg); OCCULT BLOOD,URINE NEGATIVE (Neg); PH,URINE 8.5 (4.8-8.0); PROTEIN,URINE NEGATIVE (Neg); UROBILINOGEN,URINE 0.2 E.U/dL (0.2-1.0)
[2023-09-22 16:22] LABS: URINE HCG NEGATIVE (NEG)
[2023-09-22 16:55] LABS: UA COLLECTION TYPE STRAIGHT CATH
[2023-09-22 17:05] LABS: SQUAMOUS EPITHELIAL CELL,UR MANY /LPF (FEW)
[2023-09-22 17:06] LABS: AMORPHOUS PHOSPHATES 4+
[2023-09-22 17:08] LABS: TRANSITIONAL EPI CELLS,URINE MODERATE /HPF
[2023-09-22 17:09] LABS: RBC,URINE 0-2 /HPF (0-2); WBC,URINE 0-4 /HPF (0-4)
[2023-09-22 17:12] LABS: WBC CLUMPS,URINE FEW /HPF (NEGATIVE)
[2023-09-22 17:16] LABS: BACTERIA,URINE 1+ /HPF (Neg)
[2023-09-22 17:50] VITALS: BP 98/64; PULSE 90; RESP 19; TEMP 98.9; O2SAT 99
== END 2023-09-22 17:54 | disposition home or self-care (01) ==
LOC: ER 13:10
DX: G40.802 Other epilepsy, not intractable, without status epilepticus (principal); F41.9 Anxiety disorder, unspecified; Z88.2 Allergy status to sulfonamides; Z79.899 Other long term (current) drug therapy; Z88.8 Allergy status to other drugs, medicaments and biological substances
CPT/HCPCS: 36415; 80053; 80177; 81001; 81025; 83735; 85025; 96365; 99285; J1953; J3490; A4353; C1758

== ENCOUNTER 2023-12-23 07:15 | Emergency (ER) | payer MEDICAID ==
[~2023-12-23] VITALS: Ht 170.2 cm; Wt 47.2 kg
[~2023-12-23 07:15] MED LIST changes: -NAPR-56 PO
[2023-12-23 07:16] VITALS: BP 137/89; PULSE 80; RESP 16; TEMP 98; O2SAT 99
[2023-12-23] MEDS: LIDOcaine/epinephrine/tetracaine TOPICAL sol 3 ML syringe TOP ONE (10:04)
[2023-12-23] MEDS: LIDOcaine 1% W/epiNEPHrine 1:100,000 20ml vial IJ ONE (10:04)
[2023-12-23] MEDS: LORazepam 1 MG tablet PO ONE (10:04)
== END 2023-12-23 11:00 | disposition home or self-care (01) ==
LOC: ER 07:16
DX: S01.112A Laceration without foreign body of left eyelid and periocular area, initial encounter (principal); Z88.2 Allergy status to sulfonamides; Z88.8 Allergy status to other drugs, medicaments and biological substances; Z91.09 Other allergy status, other than to drugs and biological substances; X58.XXXA Exposure to other specified factors, initial encounter; Y93.89 Activity, other specified; Y92.89 Other specified places as the place of occurrence of the external cause; Y99.8 Other external cause status
CPT/HCPCS: 12013; 99283; J3490

== ENCOUNTER 2025-05-02 09:41 | Emergency (ER) | payer MEDICAID ==
[~2025-05-02] VITALS: Ht 170.2 cm; Wt 49.0 kg
[2025-05-02 09:53] VITALS: PULSE 94
--- NOTE | 2025-05-02 10:03 | Physician Documentation ---
History of Present Illness ~ Chief Complaint: Mechanical Fall Stated Complaint: FALL Time Seen by MD: 09:46 Primary Medical Doctor: deysi boykin Source: skilled nursing records, other (Caregiver ) Exam Limitations: clinical condition HPI Patient who is at a nursing facility for long-term treatment. History of epilepsy and learning disability. Baseline is nonverbal. Unwitnessed fall from her chair onto a linoleum floor. Apparently no loss of consciousness according to care provider. Does have a laceration to her right forehead. Tetanus within 5 Years?: No Medication Reconciliation Allergies: Coded Allergies: Sulfa (Sulfonamide Antibiotics) (Verified Allergy, Unknown, 05/02/25) divalproex sodium (Verified Allergy, Unknown, 05/02/25) gluten (Unverified Allergy, Unknown, 05/02/25) lactose (Unverified Allergy, Unknown, 05/02/25) phenytoin (Verified Allergy, Unknown, 05/02/25) Scheduled Buspirone HCl (Buspirone HCl), 1 TAB PO TID, (Reported) Gabapentin (Gabapentin), 1 TAB PO BID, (Reported) Lacosamide (Vimpat), 1 TAB PO BID, (Reported) Lamotrigine (Lamotrigine), 1 TAB PO TID, (Reported) Levetiracetam (Keppra), 2 TAB PO Q12H Sennosides (Senna Laxative), 1 TAB PO BID, (Reported) Sertraline HCl (Sertraline HCl), 3 TAB PO DAILY, (Reported) Past Medical History 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*, 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, 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 Past Surgical History: noncontributory Alcohol Use: None Drug Use: none Lives with: Other Lives In: Home Occupation: disabled Review of Systems Unable to obtain complete ROS: other (Baseline is nonverbal) Physical Exam Vital Signs: Temperature: 98.7, Source: Oral, Heart Rate: 86, Respiratory Rate: 17, BP: 116/76, Pulse Oximetry: 100, Weight: 48.950 General Appearance: alert, no apparent distress Head: other (3 cm laceration to right forehead) Eye Lid: normal inspection Pupils/EOM/Fundus: PERRLA, EOM intact Ears: normal inspection Nose: normal inspection Mouth: normal inspection Neck: non-tender, full range of motion Respiratory: lungs clear, normal breath sounds Cardiovascular: regular rate, rhythm Gastrointestinal: non-tender Pelvis: normal, non-tender Skin: warm/dry, normal color Neurologic: unable to test Cerebellar function exam: unable to test Affect: other (At baseline) Procedures Laceration Repair : Anesthesia: none Prep: betadine Undermining: none Margins: flaps aligned Layer Closure?: No Splint Applied?: No Sling Applied?: No Procedure Note dermabond applied Progress Progress Note Patient in with laceration to right forehead. Head CT and neck CT negative. Wound was cleansed and reapproximated with Dermabond. Discharged home in good condition with care instructions. Keep dry for 3-5 days and allow the glue to come off on its own. Follow up if any sign of infection. Results/Orders Results/Orders Orders - DIOGENES SWEENEY MD Ct Head (05/02/25 10:14) Ct Cervical Spine (05/02/25 10:15) Completed Orders - DIOGENES SWEENEY MD Ct Head (05/02/25 10:14) Ct Cervical Spine (05/02/25 10:15) Vital Signs 05/02/25 05/02/25 05/02/25 09:43 09:53 09:53 Temp 98.7 98.7 Pulse 86 94 Resp 17 17 17 B/P (MAP) 116/76 100/73 (82) Pulse Ox 100 99 Departure Impression: Primary Impression: Forehead laceration Condition: Stable Discharge Instructions: Fall Prevention in the Home, Adult, [facility] Additional Instructions: Keep the area dry over the next 3-5 days and the glue will come off on it's own. Follow up if any signs of infection. Referrals: NO PRIMARY CARE PROVIDER (PCP) Education Educated: Other (front desk) Educated regarding: diagnosis, treatment, prognosis, need for follow up Signature Scribe Signature: No scribe used Attestation: No scribe used DIOGENES SWEENEY MD May 02, 2025 10:03
--- NOTE | 2025-05-02 10:26 | RADIOLOGY REPORT ---
EXAM: CT CT HEAD INDICATION: Unwitnessed fall, learning disability, laceration to right forehead TECHNIQUE: CT of the head without intravenous contrast. Coronal and sagittal reformatted images are s ubmitted. Radiation Dose : 1. Head: CT Dose: CTDI volume is 52.8 mGy. Dose-length product is 966.4 mGy*cm The dose indicators for CT are the volume Computed Tomography (CT) Dose Index (CTDIvol) and the Dose Length Product (DLP), and are measured in units of mGy and mGy-cm, respectively. These indicators are not patient dose, but values generated from the CT scanner acquisition factors. The report includes radiation exposure data for exposures received during this examination. All CT scans at this medical facility are performed using dose modulation techniques as appropriate to a performed exam including the following: Automated exposure control was utilized; adjustment of the MA and/or KV according to patient size; and use of iterative reconstruction technique. COMPARISON: None FINDINGS: There is no evidence of acute intracranial hemorrhage, extra-axial collection, mass effect, midline s hift, herniation or hydrocephalus. The ventricles, sulci and cisterns are age appropriate. The perales-white differentiation is intact. The visualized paranasal sinuses and mastoid air cells are clear. No depressed calvarial fracture. The surrounding soft tissues are unremarkable. IMPRESSION: 1. No evidence of acute intracranial abnormality.
--- NOTE | 2025-05-02 10:29 | RADIOLOGY REPORT ---
EXAM: CT CT CERVICAL SPINE INDICATION: unwitnessed fall, learning disability, laceration to right forehead EXAM DATE: 05/02/2025 10:10 AM COMPARISON: CT CT HEAD on DOS: 08/09/23, CT STROKE ALERT on DOS: 06/21/21 TECHNIQUE: Multiple axial CT images of the cervical spine were obtained using bone algorithm. Sagitta l and coronal reformatting was done. Bone and soft tissue windows were reviewed. Radiation Dose Information: CT Dose: CTDI volume is 8.7 mGy. Dose-length product is 176 mGy*cm FINDINGS: The cervical alignment is intact. There is reversal of the cervical lordosis. No acute cervical spine fracture is identified. The vertebral body heights are intact. No suspicious osseous lesions are jessee ntified. Multilevel ventral osteophytes. Mild multilevel intervertebral disc space narrowing. No significant s geraldo stenosis. Mild bilateral neural foraminal stenosis at C6-C7. There is no prevertebral soft tissue swelling. Lung apices are clear. IMPRESSION: 1. No evidence of acute cervical spine fracture or traumatic malalignment. 2. All CT scans at this medical facility are performed using dose modulation techniques as appropriat e to a performed exam including the following: Automated exposure control was utilized; adjustment of the MA and/or KV according to patient size; and use of iterative reconstruction technique.
[2025-05-02 11:02] VITALS: BP 110/80; RESP 17; TEMP 98.7; O2SAT 100
== END 2025-05-02 10:55 | disposition home or self-care (01) ==
LOC: ER 09:42
DX: S01.81XA Laceration without foreign body of other part of head, initial encounter (principal); F41.9 Anxiety disorder, unspecified; Z88.2 Allergy status to sulfonamides; Z88.8 Allergy status to other drugs, medicaments and biological substances; Z79.899 Other long term (current) drug therapy; W07.XXXA Fall from chair, initial encounter; Y93.89 Activity, other specified; Y92.89 Other specified places as the place of occurrence of the external cause; Y99.8 Other external cause status
CPT/HCPCS: 12013; 70450; 72125; 99284; A6449

== ENCOUNTER 2025-08-22 18:36 | Emergency (ER) | payer MEDICAID ==
[~2025-08-22] VITALS: Ht 167.6 cm; Wt 47.2 kg
[2025-08-22 18:37] VITALS: TEMP 98.5
--- NOTE | 2025-08-22 19:18 | Physician Documentation ---
History of Present Illness ~ Chief Complaint: Seizure Stated Complaint: SZ Time Seen by MD: 19:05 Primary Medical Doctor: deysi boykin Mode of Arrival: POV HPI Patient presents to the emergency room for evaluation after seizure. Patient was history of seizures. Patient is delayed and traffic safety administrator at bedside reports no missed medications. Reports seizures occur pretty often. Today she brought patient in for concerns because she had some head lacerations for which he attributes her hitting her head on the floor from likely seizure on some wooden beads. Patient also noted to have a left great toenail that has been lifted off. Medication Reconciliation Allergies: Coded Allergies: Sulfa (Sulfonamide Antibiotics) (Verified Allergy, Unknown, 05/02/25) divalproex sodium (Verified Allergy, Unknown, 05/02/25) gluten (Unverified Allergy, Unknown, 05/02/25) lactose (Unverified Allergy, Unknown, 05/02/25) phenytoin (Verified Allergy, Unknown, 05/02/25) Scheduled Buspirone HCl (Buspirone HCl), 1 TAB PO TID, (Reported) Gabapentin (Gabapentin), 1 TAB PO BID, (Reported) Lacosamide (Vimpat), 1 TAB PO BID, (Reported) Lamotrigine (Lamotrigine), 1 TAB PO TID, (Reported) Levetiracetam (Keppra), 2 TAB PO Q12H Sennosides (Senna Laxative), 1 TAB PO BID, (Reported) Sertraline HCl (Sertraline HCl), 3 TAB PO DAILY, (Reported) Past Medical History 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 Physical Exam Vital Signs: Temperature: 98.5, Source: Oral, Heart Rate: 97, Respiratory Rate: 16, BP: 149/90, Pulse Oximetry: 99, Weight: 47.200 Physical Exam General: Patient is awake, alert, cooperative in no acute distress Head: Normocephalic with several abrasions to her left upper forehead. Partial- thickness. Eyes: Conjunctival normal. EOMI. PERRL. ENT: Mucous membranes moist. Neck: Supple, trachea is midline. No cervical midline tenderness Chest: Clear to auscultation bilaterally without rales, rhonchi, or wheezes. There is no accessory muscle use or retractions. Cardiac: RRR without murmurs, gallops, or rubs. Extremities: Left great toenail lifted off. No signs of infection Progress Results/Orders Results/Orders Orders - DEVYN MUSTAFA MD Ct Head (08/22/25 19:06) Urinalysis, Cult If Indicated (08/22/25 19:06) Completed Orders - DEVYN MUSTAFA MD Ct Head (08/22/25 19:06) Cbc/Diff (08/22/25 19:06) BMP (08/22/25 19:06) MG (08/22/25 19:06) Levetiracetam-[id number]/100ml (Levetira (08/22/25 19:10) Lidocaine/Prilocaine Cream (Emla Cream) (08/22/25 19:15) Medications Received in ER Medications (Trade) Dose Ordered Sig/Issa Route PRN Reason Start Time Stop Time Status Last Admin Dose Admin Levetiracetam 100 ml @ 400 mls/hr ONCE ONCE IV 08/22/25 19:10 08/22/25 19:24 DC 08/22/25 19:57 400 MLS/HR (EMLA cream) 5 gm ONCE ONCE TP 08/22/25 19:15 08/22/25 19:16 DC 08/22/25 19:57 5 GM Vital Signs 08/22/25 08/22/25 18:37 18:44 Temp 98.5 Pulse 97 Resp 18 16 B/P (MAP) 149/90 Pulse Ox 99 Laboratory Tests Test 08/22/25 19:25 White Blood Count 4.9 Red Blood Count 4.43 Hemoglobin 13.9 Hematocrit 40.7 Mean Corpuscular Volume 92.0 Mean Corpuscular Hemoglobin 31.5 H Mean Corpuscular Hemoglobin Concent 34.2 Red Cell Distribution Width 12.9 Platelet Count 285 Mean Platelet Volume 7.7 Neutrophils (%) (Auto) 63.8 Lymphocytes (%) (Auto) 27.5 Monocytes (%) (Auto) 8.2 Eosinophils (%) (Auto) 0 Basophils (%) (Auto) 0.5 Neutrophils # (Auto) 3.1 Lymphocytes # (Auto) 1.3 Monocytes # (Auto) 0.4 Eosinophils # (Auto) 0.0 Basophils # (Auto) 0.0 CBC Comment Sodium Level 141 Potassium Level 4.3 Chloride Level 105 Carbon Dioxide Level 28.0 Anion Gap 8 Blood Urea Nitrogen 13 Creatinine 0.77 Estimated GFR/1.73 m2 83 BUN/Creatinine Ratio 16.9 Glucose Level 101 Calcium Level 8.6 Magnesium Level 1.9 Albumin 3.8 Chemistry Comments Medical Decision Making Additional information obtaine: old records Findings Patient presented to the emergency room with seizure activity. No seizures while here in the emergency room. She has been loaded with Keppra. Labs reassuring. Given patient's head strike with a additional seizure CT scan was performed which was reassuring. Differential Dx:Considerations: Include: Hyperventilation, Psychogenic seizure, Due to alcohol withdrawl, Anticonvulsant withdrawl, Due to closed head injury, Due to CVA/TIA, Due to drug ingestion, Due to eclampsia, Due to hypocalcemia, Due to hypoglycemia, Due to hyponatremia, Due to hypoxemia, Idiopathic, Due to mass lesion, Due to meningitis, Syncope, Encephalopathy, Epilepsy-break through, Epilepsy-status, Other Departure Disposition: 01 HOME / SELF CARE / HOMELESS Impression: Primary Impression: Seizure disorder Condition: Stable Discharge Instructions: Seizure, Adult Referrals: NO PRIMARY CARE PROVIDER (PCP) Signature Scribe Signature: No scribe Attestation: The note accurately reflects work and decisions made by me.Devyn Mustafa MD 08/22/25 20:03 DEVYN MUSTAFA MD Aug 22, 2025 19:18
[2025-08-22 19:36] LABS: MEAN PLATELET VOLUME 7.7 FL (7.4-10.4); RED CELL DISTRIBUTION WIDTH 12.9 % (11.5-14.5)
[2025-08-22 19:48] LABS: CREATININE 0.77 MG/DL (0.40-0.90); TOTAL CARBON DIOXIDE 28.0 MMOL/L (24-32); eCRCL 73 ML/MIN; eGFR 83 ML/MIN
[2025-08-22] MEDS: levetiracetam-NACL1000mg/100ml 100 ML IV ONE (19:57)
[2025-08-22] MEDS: LIDOcaine/PRILOcaine 5gm cream TP ONE (19:57)
--- NOTE | 2025-08-22 19:59 | RADIOLOGY REPORT ---
EXAM: CT CT HEAD INDICATION: head strike with seizure TECHNIQUE: CT images of the head were obtained without administration of IV contrast. CT scans at this facility use dose modulation, iterative reconstruction, and/or weight based dosing when appropriate to reduce radiation dose to as low as reasonably achievable. COMPARISON: CT CT HEAD on DOS: 05/02/25 FINDINGS: PARENCHYMA: No acute hemorrhage. There is no mass effect, midline shift, or herniation. There is preservation of the perales white differentiation. Prominence of the cerebellar folia of the cerebellum with a possible slight atrophy of the vermis. Consider correlation with clinical exam for alcoholism versus other metabolic derangement. VENTRICLES: No hydrocephalus. EXTRA-AXIAL SPACES: No extra-axial fluid collections. OTHER: The bony structures are intact. Visualized portions of the paranasal sinuses and mastoid air cells are clear. IMPRESSION: 1. No CT evidence of an acute intracranial abnormality. 2. Prominence of the cerebellar folia of the cerebellum with a possible slight atrophy of the vermis. 3. Consider correlation with clinical exam for alcoholism versus other metabolic derangement.
[2025-08-22] MEDS: diazepam inj 5 MG/ML inj. IV ONE (20:29)
[2025-08-22] MEDS: propofol 10mg/ml 20ml vial IV ONE (20:35)
[2025-08-22] MEDS: LACOSAMIDE 200mg/20ml inj. 200 MG in normal saline 100ml IV soln 100 ML IV ONE (20:52)
[2025-08-22] MEDS: bacitracin 15gm ointment TP ONE (21:50)
[2025-08-22 22:11] VITALS: BP 112/68; PULSE 88; RESP 16; O2SAT 99
== END 2025-08-22 22:14 | disposition home or self-care (01) ==
LOC: ER 18:37
DX: G40.909 Epilepsy, unspecified, not intractable, without status epilepticus (principal); S01.91XA Laceration without foreign body of unspecified part of head, initial encounter; R06.02 Shortness of breath; Z88.2 Allergy status to sulfonamides; Z88.8 Allergy status to other drugs, medicaments and biological substances; Z79.899 Other long term (current) drug therapy; X58.XXXA Exposure to other specified factors, initial encounter; Y93.89 Activity, other specified; Y92.89 Other specified places as the place of occurrence of the external cause; Y99.8 Other external cause status
CPT/HCPCS: 11730; 36415; 70450; 80048; 83735; 85025; 96365; 96366; 96368; 96375; 99152; 99285; C9254; J1953; J3360; 94760; A4620